=== PATIENT | female | born 1995 | race Caucasian/White ===

== ENCOUNTER 2018-12-21 00:52 | Emergency (ER) | payer OTHER ==
[2018-12-21] MEDS: CEPHALEXIN 500 MG CAP PO (02:41)
[2018-12-21] MEDS: IBUPROFEN 800 MG TAB PO (02:42)
== END 2018-12-21 03:02 | disposition home or self-care (01) ==
LOC: FTE 00:52
DX: S90.562A Insect bite (nonvenomous), left ankle, initial encounter (principal); L03.116 Cellulitis of left lower limb; W57.XXXA Bitten or stung by nonvenomous insect and other nonvenomous arthropods, initial encounter; Y92.9 Unspecified place or not applicable
CPT/HCPCS: 99283; Z7502